=== PATIENT | female | born 1950 | race Caucasian/White ===

== ENCOUNTER → 2018-11-03 | Outpatient (CLI) | payer MEDICARE ==
[~2018-11-03] MED LIST: ALBIPROI INH; ALBU.083IS IH; CALCAVITD PO; CYCL10; DIAZ10; FAMO20 PO; HYDACE5 PO; HYDHCL25; HYDHCL25 PO; MAGCHL64ER; NAPR500 PO; SUCR1 PO; TIOT18 IH; VITAMINS; Zofran Odt4 MG PO
[2018-11-03 12:11] LABS: BASOPHILS ABSOLUTE AUTO 0.02 K/mm3 (0.00-0.23); BASOPHILS PERCENT AUTO 1 % (0-2); EOSINOPHILS ABSOLUTE AUTO 0.15 K/mm3 (0.00-0.68); EOSINOPHILS PERCENT AUTO 4 % (0-6); Hematocrit 47.2 % (33.0-51.0); Hemoglobin 14.9 g/dL (11.5-16.0); IMMATURE GRAN ABSOLUTE AUTO 0.01 K/mm3 (0.00-0.10); IMMATURE GRAN PERCENT AUTO 0 % (0-1); LYMPHOCYTES ABSOLUTE AUTO 1.01 K/mm3 (0.84-5.20); LYMPHOCYTES PERCENT AUTO 25 % (21-46); MONOCYTES ABSOLUTE AUTO 0.28 K/mm3 (0.16-1.47); MONOCYTES PERCENT AUTO 7 % (4-13); Mean Corpuscular HGB 28.6 pg (26.0-34.0); Mean Corpuscular HGB Conc 31.6 g/dL (31.5-36.5); Mean Corpuscular Volume 91 fL (80-100); Mean Platelet Volume 8.9 fL (9.1-12.4); NEUTROPHILS ABSOLUTE AUTO 2.63 K/mm3 (1.96-9.15); NEUTROPHILS PERCENT AUTO 64 % (41-73); Platelet Count 244 K/mm3 (150-400); RDW Standard Deviation 42.9 fL (35.1-46.3); Red Blood Cell Count 5.21 M/mm3 (3.80-5.20)
[2018-11-03 12:29] LABS: Alanine Aminotransfer (ALT/SGP 26 U/L (12-78); Albumin, Blood 3.8 g/dL (3.4-5.0); Albumin/Globulin Ratio 0.8 (0.8-1.8); Alk Phos 76 U/L (40-126); Anion Gap 3 mmol/L (6-16); Aspartate Aminotrans (AST/SGOT 27 U/L (12-37); Bilirubin, Total 0.3 mg/dL (0.1-1.0); Blood Urea Nitrogen 11 mg/dL (8-24); Bun/Creatinine Ratio 13.8 (12.0-20.0); CO2, Blood 35 mmol/L (21-32); Calcium, Blood 9.2 mg/dL (8.5-10.1); Chloride, Blood 104 mmol/L (98-108); Globulin, Blood 4.5 g/dL (2.2-4.0); Glomerular Filtration Rate >60 (60-); Glucose, Blood 95 mg/dL (70-99); Potassium, Blood 4.3 mmol/L (3.5-5.5); Sodium, Blood 142 mmol/L (136-145); Total Protein, Blood 8.3 g/dL (6.4-8.2)
== END | disposition home or self-care (01) ==
LOC: LAB SHORT 12:07 → LAB EV 12:07
PROVIDERS: Physician Assistant
DX: B37.2 Candidiasis of skin and nail (principal)
CPT/HCPCS: 80053; 85025

== ENCOUNTER → 2018-11-23 | Outpatient (CLI) | payer MEDICARE | LOC: LAB SHORT 07:24 → PLD 07:24 | DX: L30.9 Dermatitis, unspecified (principal) | CPT/HCPCS: 88313 ==

== ENCOUNTER 2019-10-17 11:48 | Inpatient (IN) | payer MEDICARE ==
[~2019-10-17] VITALS: Ht 160 cm; Wt 71.1 kg
[~2019-10-17 11:48] MED LIST changes: +ALBU90OI INH; +ALBU90OI6 INH; -DIAZ10; +DIAZ10 PO; +Daily Multiple1 EACH PO; +POTASSIUM99 MG PO; +Prednisone20 MG PO; -VITAMINS; +Ventolin Sy2 MG/5 ML INH; +Ventolin Sy2 MG/5 ML PO
[2019-10-17 14:02] LABS: Source, Urine Catheter
[2019-10-17 14:15] LABS: Blood, Urine 2+ (Neg); Glucose Qualitative, Urine Neg (Neg); Ketones, Urine 1+ (Neg); Leukocyte Esterase, Urine 1+ (Neg); Nitrite, Urine Neg (Neg); Protein, Urine 3+ (Neg); Specific Gravity, Urine 1.025 (1.003-1.022); Urobilinogen, Urine 1+ (Normal)
[2019-10-17 14:44] LABS: U Amphetamine Screen Not Detected; U Barbituate Screen Not Detected; U Benzodiazapine Screen DETECTED; U Buprenorphine Screen Not Detected; U Cannabinoids Screen Not Detected; U Cocaine Screen Not Detected; U Methadone Screen Not Detected; U Methamphetamine Screen Not Detected; U Opiates Screen Not Detected; U Oxycodone Screen Not Detected; U Phencyclidine Screen Not Detected; U Propoxyphene Screen Not Detected
[2019-10-17 15:05] LABS: Bilirubin, Urine 1+ (Neg)
[2019-10-17 15:06] LABS: Appearance, Urine Clear (Clear); Color, Urine Amber (P-Yellow)
[2019-10-17 15:07] LABS: Amorphous Light (0-Heavy); Bacteria Few /hpf; Hyaline Casts 0-2 /lpf (0-2); Squamous Epithelial Cells Few /hpf (Few)
[2019-10-17 16:42] LABS: BASOPHILS ABSOLUTE AUTO 0.04 K/mm3 (0.00-0.23); BASOPHILS PERCENT AUTO 1 % (0-2); EOSINOPHILS PERCENT AUTO 0 % (0-6); Hemoglobin 16.1 g/dL (11.5-16.0); IMMATURE GRAN ABSOLUTE AUTO 0.07 K/mm3 (0.00-0.10); IMMATURE GRAN PERCENT AUTO 1 % (0-1); LYMPHOCYTES ABSOLUTE AUTO 0.69 K/mm3 (0.84-5.20); LYMPHOCYTES PERCENT AUTO 10 % (21-46); MONOCYTES PERCENT AUTO 6 % (4-13); Mean Corpuscular HGB 27.4 pg (26.0-34.0); Mean Corpuscular HGB Conc 28.9 g/dL (31.5-36.5); Mean Corpuscular Volume 95 fL (80-100); Mean Platelet Volume 9.8 fL (9.1-12.4); NEUTROPHILS ABSOLUTE AUTO 5.92 K/mm3 (1.96-9.15); NEUTROPHILS PERCENT AUTO 83 % (41-73); NRBC Auto 1.4 /100 WBC (0.0-0.2); Platelet Count 287 K/mm3 (150-400); RDW Coefficient Variation 16.4 % (11.7-14.2); RDW Standard Deviation 56.3 fL (35.1-46.3); Red Blood Cell Count 5.87 M/mm3 (3.80-5.20); White Blood Cell Count 7.12 K/mm3 (4.00-11.30)
[2019-10-17 16:52] LABS: Hematocrit 55.7 % (33.0-51.0)
[2019-10-17 17:07] LABS: Ethanol (Alcohol), Blood, Med <3 mg/dL; Troponin I 0.137 ng/mL (0.000-0.040)
[2019-10-17 17:29] LABS: Alanine Aminotransfer (ALT/SGP 238 U/L (12-78); Albumin, Blood 2.3 g/dL (3.4-5.0); Albumin/Globulin Ratio 0.8 (0.8-1.8); Alk Phos 71 U/L (50-136); Anion Gap 8 mmol/L (6-16); Aspartate Aminotrans (AST/SGOT 391 U/L (12-37); Bilirubin, Total 1.2 mg/dL (0.1-1.0); Blood Urea Nitrogen 31 mg/dL (8-24); Bun/Creatinine Ratio 34.1 (12.0-20.0); CO2, Blood 31 mmol/L (21-32); Chloride, Blood 105 mmol/L (98-108); Creatinine, Blood 0.91 mg/dL (0.40-1.00); Globulin, Blood 2.9 g/dL (2.2-4.0); Glomerular Filtration Rate >60 (60-); Glucose, Blood 104 mg/dL (70-99); Potassium, Blood 3.7 mmol/L (3.5-5.5); Sodium, Blood 144 mmol/L (136-145); Total Protein, Blood 5.2 g/dL (6.4-8.2)
[2019-10-17 17:37] LABS: Calcium, Blood 8.3 mg/dL (8.5-10.1)
[2019-10-17 18:56] LABS: Magnesium, Blood 1.6 mg/dL (1.6-2.4); Phosphorus, Blood 5.4 mg/dL (2.5-4.9)
[2019-10-18 03:49] LABS: BASOPHILS ABSOLUTE AUTO 0.05 K/mm3 (0.00-0.23); BASOPHILS PERCENT AUTO 1 % (0-2); EOSINOPHILS ABSOLUTE AUTO 0.08 K/mm3 (0.00-0.68); EOSINOPHILS PERCENT AUTO 1 % (0-6); Hematocrit 53.5 % (33.0-51.0); Hemoglobin 15.3 g/dL (11.5-16.0); IMMATURE GRAN ABSOLUTE AUTO 0.02 K/mm3 (0.00-0.10); IMMATURE GRAN PERCENT AUTO 0 % (0-1); LYMPHOCYTES ABSOLUTE AUTO 1.28 K/mm3 (0.84-5.20); LYMPHOCYTES PERCENT AUTO 17 % (21-46); MONOCYTES ABSOLUTE AUTO 0.84 K/mm3 (0.16-1.47); MONOCYTES PERCENT AUTO 11 % (4-13); Mean Corpuscular HGB 27.3 pg (26.0-34.0); Mean Corpuscular HGB Conc 28.6 g/dL (31.5-36.5); Mean Corpuscular Volume 95 fL (80-100); Mean Platelet Volume 9.7 fL (9.1-12.4); NEUTROPHILS ABSOLUTE AUTO 5.08 K/mm3 (1.96-9.15); NEUTROPHILS PERCENT AUTO 69 % (41-73); NRBC ABSOLUTE 0.11 K/mm3 (0.00-0.02); NRBC Auto 1.5 /100 WBC (0.0-0.2); Platelet Count 281 K/mm3 (150-400); RDW Coefficient Variation 16.3 % (11.7-14.2); RDW Standard Deviation 56.6 fL (35.1-46.3); Red Blood Cell Count 5.61 M/mm3 (3.80-5.20); White Blood Cell Count 7.35 K/mm3 (4.00-11.30)
[2019-10-18 04:14] LABS: Albumin, Blood 3.1 g/dL (3.4-5.0); Albumin/Globulin Ratio 0.9 (0.8-1.8); Bilirubin, Total 1.3 mg/dL (0.1-1.0); Bun/Creatinine Ratio 25.4 (12.0-20.0); Calcium, Blood 8.5 mg/dL (8.5-10.1); Creatinine, Blood 1.34 mg/dL (0.40-1.00); Globulin, Blood 3.5 g/dL (2.2-4.0); Potassium, Blood 4.9 mmol/L (3.5-5.5); Total Protein, Blood 6.6 g/dL (6.4-8.2)
--- NOTE | 2019-10-18 06:29 | NUR ---
ADMISSION: ADMISSION INCOMPLETE D/T PATIENT CONFUSION, NO FAMILY/CAREGIVER/FRIENDS AT BEDSIDE
--- NOTE | 2019-10-18 06:41 | NUR ---
a+o, garbled speech, currently resting quietly, with wrist and vest restraints, 4L via nc kept 02% in the 90's while resting but would dstat with activity, bed in low position, call light in reach, will continue to monitor and treat until share bsr with day staff and pt
--- NOTE | 2019-10-18 11:46 | NUR ---
Echocardiogram completed.
--- NOTE | 2019-10-18 19:37 | NUR ---
SHIFT SUMMARY REPORT REC'D FROM ANN MARIE DE LA TORRE. ASSESSMENT NOTED. LAURA AND SOFT WRIST RETRAINTS REMAINED IN PLACE T/O DAY D/T PT REPEATEDLY REMOVING O2. WHEN O2 IS OFF, SATS DROP TO 70 AND REMAIN FOR ABOUT 20 MIN WITH O2 BUMPED FROM 3 TO 6 UNTIL SATS REACH 90'S THEN CAN BE TURNED BACK DOWN. THIS ALSO HAPPENED EACH TIME PT WORKED WITH THERAPY TODAY. Q1H URINE OUTPUT RECORDED AND IS NOT A PROBLEM. CHEMICAL LABORATORY TESTER CAME IN TODAY AND INFORMED THIS RN THAT PT HAS HISTORY OF SCHIZOPHRENIA AND IS A HEAVY SMOKER WITH COPD. SHE HAD A FAMILY MEMBER WITH COPD ON HOME O2 RECENTLY AND DUE TO HER MENTAL HEALTH ISSUES ASS[employer]IATES O2 WITH . SHE ALSO STATED THAT PT SEES A COSMETICS COUNTER MANAGER AND WAS ENCOURAGED TO SEE HER DR SEVERAL DAYS AGO WHEN PT WAS SHORT OF BREATH WHILE SHOPPING WITH CHEMICAL LABORATORY TESTER. PT DECLINED STATING THAT SHE HAD AN APPT COMING UP. C.G. STATES PT DOES NOT TAKE PSYCH MEDS. SHE ASSISTS PT WITH DAY TO DAY ACTIVITIES SUCH LAUNDRY, SHOPPING, APPOINTMENTS, ETC. PT IS NORMALLY INDEP, COHERENT, CLEAR SPEECH. HER CURRENT PRESENTATION IS NOTHING NEAR HER HOME BASELINE. PT HAS REFUSED HOME O2 SET UP THREE TIMES PER C.G. BECAUSE OF HER ASSOC TO . PROBABLY ANOXIC BRAIN INJURY? UNABLE TO LOOK INTO PT RECORDS DUE TO BUSY PT TURNOVER IN UNIT. REPORT GIVEN TO ANN MARIE DE LA TORRE. NO CHANGE WITH PT T/O THE DAY.
--- NOTE | 2019-10-18 21:31 | NUR ---
alert at base line continues to disregard directtions, removing nc and monitors, dispite eduation as to sonia contreras, still demanding to be allowed to go home, restraits in place, frequent checks by staff, assessed for comfort and marko care, 6L via nc, fed jello with medication and prn, refused and ice cream with med in them, speech garbled, report received from day shift agreed to give late medations, call ed hospitalist r/q hour urine checks, agreed to just monitor and ensure that pt continues to have good urine flow, legs are much improved from yesterday only ankles continu to have +3 edema, fingers and toes cynotic/clubbed, denies pain, oral care provided, adjusted in bed, will continue to monitor and treat as appropriate until provide bsr to day nurse
--- NOTE | 2019-10-19 00:48 | NUR ---
RESTING QUIETLY, DRAINED AND RECORDED URINE OUTPUT, STILL LIGHT CLEAR YELLOW, DRY, REPOSITIONED
--- NOTE | 2019-10-19 07:12 | NUR ---
ASSUMED CARE: PT SITTING UPRIGHT IN BED, WRIST RESTRAINTS AND LAURA VEST IN PLACE. PT CONFUSED, PULLING AT RESTRAINTS, ATTEMPTING TO GET O2 OFF. [place] IN PLACE. NIGHT DYED YARN OPERATOR HELPING PT GET REPOSITIONED IN BED.
--- NOTE | 2019-10-19 07:20 | NUR ---
still in restraints, call 4L via nc, when pt removes nc dstats and takes more than just 4L to get her back up quickly, when resting, stays above 92% on just 2L via nc, still pulling on restraints, still askin to be allowed to "pee" dispite multiple people having told her in various ways that she has a cantor cath, cooperative even when removed restraints just very forgetful, bsr shared with day staff and pt
--- NOTE | 2019-10-19 13:56 | NUR ---
Pt. is in bed resting offered prayers for her .
--- NOTE | 2019-10-19 16:40 | NUR ---
PT GOT UP AND WORKED WITH PT/OT WITHOUT OO2 IN PLACE. DID DESAT BUT RECOVERED AFTER SEVERAL MINUTES TO MID 90S. ON RA AT THIS TIME ND WRIST RESTRAINTS OFF DUE TO LINES BEING REMOVED OR COVERED
--- NOTE | 2019-10-19 17:21 | NUR ---
PT TRANSFERRED TO MEDICAL FLOOR VIA WHEEL CHAIR AND O2 IN PLACE DUE TO PT BEING SOB WITH EXERTION. REPORT GIVEN TO JONATHON DE LA TORRE
--- NOTE | 2019-10-19 17:35 | NUR ---
PT ARRIVED TO THE MEDICAL FLOOR FROM THE PCU, ALERT ORIENTED TO SELF ONLY, THE PT ON ARRIVAL TO THE FLOOR HAD HER O2 PULLED OFF AND WAS AT 70% O2, ORDER WAS WRIST RESTRAINTS WAS GIVEN BY DR. MENDOZA, CALL LIGHT WAS PLACED IN REACH, WILL CONTINUE TO MONITOR AND ASSESS FOR CHANGES
--- NOTE | 2019-10-19 21:03 | NUR ---
1919: ASSUMED CARE OF PATIENT WHO IS SITING IN BED, RESTRAINED WITH LAURA AND SOFT WRIST RESTRAINTS. PER REPORT SHE WAS ABLE TO UNDO HER SRIST RESTRAINTS AND EVEN WITH THEM IN PLACE SHE CONTINUES TO BEND HER HEAD DOWN AND REMOVE ERH O2. CAREGIVERS AT BEDSIDE ARE KEEPING HER FROM REMOVING IT. SHE IS AGITATED, CALLING OUT FOR HELP. PER DAY RN SHE WAS SATURATING AT MID 60'S ON ARRIVAL TO THE [facility] [place]. O2 IS CURRENTLY AT 2L. PER CAREGIVERS THEY FEEL THAT SHE NEEDS VALIUM, WHICH SHE TAKES DAILY. PER EMAR SHE HAS A DAILY DOSE BUT TOLD FAMILY I WOULD SEE IF THE DR WOULD GIVE ANYTHING ADDITIONAL FOR ANXIETY. PASSED THIS TO FOREST AND CONSERVATION WORKER WHO CALLED AND RECEIVED ORDERS PER EMAR. 2107: GOT PATIENT OOB TO [facility] [place] VOIDED 250[place]. SHE WAS FIGHTING AND TRYING TO TAKE OFF HER O2 ONCE RESTRAINTS WERE LOOSED. GOT HER BACK TO BED WITH ASSIST X2 BUT PATIENT WAS EXTREMELY SOB AND HAD DIFFICULTY TRANSFERRING BACK TO THE BED. GAVE BEDTIME MEDS AND PRN VALIUM PER EMAR. BED LOW AND LOCKED. PT ON CAMERA. CALL BULL WITHIN REACH.
--- NOTE | 2019-10-19 23:46 | NUR ---
RECHECKED PT VS AND SHE WAS FOUND TO BE HYPOXIC; WITH ELEVATED HR AND BP; INCREASED O2 CALLED RT. A HI-FLOW N/C WAS PLACED. PT VS STABILIZED, NOW SBP 130s, O2 96%. VEWS SCORE IMPROVED. RESTRAINTS WERE SECURED AT A LOWER POINT ON THE BED FRAME. BED LOW AND LOOCKED. WILL CONTINUE TO MONITOR.
[2019-10-20 05:03] LABS: BASOPHILS ABSOLUTE AUTO 0.04 K/mm3 (0.00-0.23); BASOPHILS PERCENT AUTO 1 % (0-2); EOSINOPHILS ABSOLUTE AUTO 0.02 K/mm3 (0.00-0.68); EOSINOPHILS PERCENT AUTO 0 % (0-6); Hematocrit 53.2 % (33.0-51.0); Hemoglobin 15.3 g/dL (11.5-16.0); IMMATURE GRAN ABSOLUTE AUTO 0.02 K/mm3 (0.00-0.10); IMMATURE GRAN PERCENT AUTO 0 % (0-1); LYMPHOCYTES ABSOLUTE AUTO 1.08 K/mm3 (0.84-5.20); LYMPHOCYTES PERCENT AUTO 17 % (21-46); MONOCYTES ABSOLUTE AUTO 0.63 K/mm3 (0.16-1.47); MONOCYTES PERCENT AUTO 10 % (4-13); Mean Corpuscular HGB 27.3 pg (26.0-34.0); Mean Corpuscular HGB Conc 28.8 g/dL (31.5-36.5); Mean Corpuscular Volume 95 fL (80-100); Mean Platelet Volume 9.7 fL (9.1-12.4); NEUTROPHILS ABSOLUTE AUTO 4.68 K/mm3 (1.96-9.15); NEUTROPHILS PERCENT AUTO 72 % (41-73); Platelet Count 263 K/mm3 (150-400); RDW Coefficient Variation 15.5 % (11.7-14.2); RDW Standard Deviation 53.2 fL (35.1-46.3); Red Blood Cell Count 5.61 M/mm3 (3.80-5.20); White Blood Cell Count 6.47 K/mm3 (4.00-11.30)
[2019-10-20 06:18] LABS: Alanine Aminotransfer (ALT/SGP 208 U/L (12-78); Albumin, Blood 3.1 g/dL (3.4-5.0); Albumin/Globulin Ratio 0.8 (0.8-1.8); Alk Phos 72 U/L (50-136); Aspartate Aminotrans (AST/SGOT 136 U/L (12-37); Bilirubin, Total 1.6 mg/dL (0.1-1.0); Blood Urea Nitrogen 18 mg/dL (8-24); Bun/Creatinine Ratio 21.3 (12.0-20.0); Calcium, Blood 8.6 mg/dL (8.5-10.1); Chloride, Blood 89 mmol/L (98-108); Creatinine, Blood 0.84 mg/dL (0.40-1.00); Globulin, Blood 3.7 g/dL (2.2-4.0); Glomerular Filtration Rate >60 (60-); Glucose, Blood 94 mg/dL (70-99); Potassium, Blood 4.1 mmol/L (3.5-5.5); Sodium, Blood 142 mmol/L (136-145); Total Protein, Blood 6.8 g/dL (6.4-8.2)
[2019-10-20 06:23] LABS: Anion Gap Unable to Calculate mmol/L (6-16); CO2, Blood >45 mmol/L (21-32); Magnesium, Blood 1.1 mg/dL (1.6-2.4)
--- NOTE | 2019-10-20 07:41 | NUR ---
PATIENT CONTINUES TO BE ALL OVER THE PLACE WITH HER SATURATION LEVELS. ALSO PT HAS POOR OUTPUT. BUT SHE ALSO HAS POOR INTAKE. SHE IS RESTRAINED IN A LAURA AND SOFT WRIST RESTRAINTS. RECEIVING O2 VIA HI-SONY N/C WHICH SHE KEEPS TRYING TO REMOVE, OFTEN SUCESSFULLY EVEN IN RESTRAINTS. PT HAD ONE UNMEASURED VOID WHICH WAS LARGE. THEN SHE HAD ONE MEASURED VOID OF 250MLS. CRITICAL VALUES WERE CALLED TO DR INGRAM THIS AM. MAG=1.1 AND CO2>45. NO NEW ORDERS RECIEVED.
--- NOTE | 2019-10-20 17:24 | NUR ---
PT CONFUSED THROUGHOUT THIS SHIFT. PT REMAINS ON WRIST RESTRAINTS AND LAURA VEST IN ORDER TO PROTECT HER O2 TUBING. PT ADJUSTS OR REMOVES O2 TUBING ANY TIMES HER HANDS ARE RELEASED. O2 SATS FROM 80'S TO 60'S WHEN O2 REMOVED. PT REMAINS ON 5L O2 THROUGHOUT THIS SHIFT. PT REORIENTED MULTIPLE TIMES THROUGHOUT THIS SHIFT. PT 2 PERSON ASSIST TO BEDSIDE COMODE WITH MULTIPLE ATTEMPTS TO REORIENT AND GUIDE THROUGH THE PROCESS. PT SPEACH MUMBLED/GARBLED AT TIMES WHILE MUMBLED BUT UNDERSTANDABLE AT OTHERS. PT CURRENTLY IN ROOM EATING WITH THE ASSISTANCE OF THE NURSE PRACTITIONER PER DIEM.
--- NOTE | 2019-10-21 01:33 | NUR ---
IV STARTED IN THE LEFT FOREARM, 22G FLUSHED WELL WITH 10NS, WITH GOOD BLOOD RETURN.
--- NOTE | 2019-10-21 04:37 | NUR ---
SHIFT SUMMARY PATIENT REMAINS CONFUSIED AND IN LAURA/SOFT WRIST RESTRAINTS. CIRCULATION AND SENSATION HAS BEEN INTACT AT ALL TIMES. IV IN LEFT AC STARTED LEAKING, NEW IV INSERTED INTO LEFT FOREARM. SHE IS CURRENTLY ON 5 LITERS O2 VIA HIGH FLOW NASAL CANULA. BED IN LOWEST POSITION WITH WHEELS LOCKED AND ALARM ON. CALL LIGHT WITHIN REACH. REPORT GIVEN TO ONCOMING RN.
--- NOTE | 2019-10-21 05:51 | NUR ---
DURING THE RESTRAINT ASSESSMENT I NOTICED THAT THE PATIENTS ELBOWS WERE BECOMING RED. PROTECTIVE MEPILEX DRESSINGS APPLIED.
[2019-10-21 06:05] LABS: Alanine Aminotransfer (ALT/SGP 147 U/L (12-78); Albumin, Blood 2.9 g/dL (3.4-5.0); Albumin/Globulin Ratio 0.8 (0.8-1.8); Alk Phos 66 U/L (50-136); Anion Gap 5 mmol/L (6-16); Aspartate Aminotrans (AST/SGOT 77 U/L (12-37); Blood Urea Nitrogen 18 mg/dL (8-24); Bun/Creatinine Ratio 21.4 (12.0-20.0); CO2, Blood 43 mmol/L (21-32); Calcium, Blood 8.8 mg/dL (8.5-10.1); Chloride, Blood 93 mmol/L (98-108); Creatinine, Blood 0.84 mg/dL (0.40-1.00); Globulin, Blood 3.7 g/dL (2.2-4.0); Glomerular Filtration Rate >60 (60-); Glucose, Blood 76 mg/dL (70-99); Sodium, Blood 141 mmol/L (136-145); Total Protein, Blood 6.6 g/dL (6.4-8.2)
[2019-10-21 06:08] LABS: BASOPHILS ABSOLUTE AUTO 0.03 K/mm3 (0.00-0.23); BASOPHILS PERCENT AUTO 1 % (0-2); EOSINOPHILS ABSOLUTE AUTO 0.15 K/mm3 (0.00-0.68); EOSINOPHILS PERCENT AUTO 3 % (0-6); Hemoglobin 15.8 g/dL (11.5-16.0); IMMATURE GRAN ABSOLUTE AUTO 0.03 K/mm3 (0.00-0.10); IMMATURE GRAN PERCENT AUTO 1 % (0-1); LYMPHOCYTES ABSOLUTE AUTO 1.14 K/mm3 (0.84-5.20); LYMPHOCYTES PERCENT AUTO 24 % (21-46); MONOCYTES PERCENT AUTO 15 % (4-13); Mean Corpuscular HGB 27.4 pg (26.0-34.0); Mean Corpuscular HGB Conc 28.6 g/dL (31.5-36.5); Mean Corpuscular Volume 96 fL (80-100); NEUTROPHILS ABSOLUTE AUTO 2.73 K/mm3 (1.96-9.15); NEUTROPHILS PERCENT AUTO 57 % (41-73); Platelet Count 164 K/mm3 (150-400); RDW Coefficient Variation 15.3 % (11.7-14.2); RDW Standard Deviation 53.8 fL (35.1-46.3); Red Blood Cell Count 5.77 M/mm3 (3.80-5.20); White Blood Cell Count 4.78 K/mm3 (4.00-11.30)
[2019-10-21 06:10] LABS: Hematocrit 55.3 % (33.0-51.0)
--- NOTE | 2019-10-21 17:59 | NUR ---
PT LETHARGIC AND SLEEPING THROUGHOUT THIS SHIFT. PT WAKES TO VERBAL STIMULI THEN QUICKLY RETURNS TO SLEEP. PT CONTINUES TO BE IN RESTRAINTS TO MAINTAIN O2 LINES, WHICH SHE QUICKLY ADJUSTS AND REMOVES NC WHEN HANDS ARE ABLE TO REACH HER FACE. PT REMAINS CONFUSED THROUGHOUT THIS SHIFT WITHOUT MOMENTS OF CLARITY SEEN YESTERDAY. PT UP TO BEDSIDE COMODE 2X DURING THIS SHIFT WITH 2 PERSON ASSIST. PT REMAINS ON 5L O2 TO MAINTAIN SATS IN 90S. PT CURRENTLY SLEEPING IN BED.
--- NOTE | 2019-10-22 04:45 | NUR ---
SHIFT SUMMARY PATIENT WOKE UP AND WAS MUMBLING TO SELF AND TALKING TO STAFF FOR THE FIRST PART OF THE NIGHT AND THEN SLEPT SOUNDLY THE REST OF THE NIGHT. IV PATENT AND FLUSHED. LAURA VEST/SOFT WRIST RESTRAINTS IN PLACE, ASSESSMENTS DONE MINIMUM OF EVERY TWO HOURS. CIRCULATION, SENSATION, AND MOVEMENT ALL AT BASELINE. PATIENT CURRENTLY ON 5 LITERS O2 VIA HIGH FLOW NASAL CANULA. PROTECTIVE MEPILEX STILL ON ELBOWS. BED IN LOWEST POSITION WITH WHEELS LOCKED AND ALARM ON. CALL LIGHT WITHIN REACH. REPORT GIVEN TO ONCOMING RN.
[2019-10-22 05:55] LABS: Anion Gap 4 mmol/L (6-16); Blood Urea Nitrogen 18 mg/dL (8-24); Bun/Creatinine Ratio 23.3 (12.0-20.0); CO2, Blood 39 mmol/L (21-32); Calcium, Blood 9.1 mg/dL (8.5-10.1); Chloride, Blood 97 mmol/L (98-108); Creatinine, Blood 0.77 mg/dL (0.40-1.00); Glomerular Filtration Rate >60 (60-); Glucose, Blood 78 mg/dL (70-99); Potassium, Blood 4.3 mmol/L (3.5-5.5); Sodium, Blood 140 mmol/L (136-145)
--- NOTE | 2019-10-22 08:40 | NUR ---
PT REFUSING MEDS AND ANY FOOD OR WATER AT THIS TIME. SHE IS STILL IN RESTRAINTS AND IS QUIET AT THIS TIME.
--- NOTE | 2019-10-22 12:18 | NUR ---
PT NEEDS TO BE ENCOURAGED TO EAT . SHE TOLD DOCTOR SHE WAS HUNGRY YET WHEN PRESENTED WITH FOOD SHE HAS TO BE ENCOURAGED TO EAT. ALL ITEMS FROM [facility] WERE PRESENTED TO HER AND STAFF REPEATED TO HER THAT SHE NEEDED TO EAT TO GET BETTER. PT STILL REMAINS CONFUSED AND ATTEMPTS TO PULL AT O2 LINES. FLUIDS AND FOOD CONTINUE TO BE PUSHED
--- NOTE | 2019-10-22 16:44 | NUR ---
INITIAL PAL CARE VISIT - PER REQUEST OF RN TODAY. T/C from RN with report of pt pulling O2 off, not being alert/awake enough for good PO intake, continued anxiety, agiation, severe confusion. Visit made after review of EMR. Pt woke to touch but did not want to be touched or talked to. She is in soft restraints, supine, with hob elevated. She falls back to sleep if undisturbed. Some repositioning done to prevent pressure on foot against foot board. Most verbalization is unintelligible. She has had psych consult with recommendations for medications to treat agitation and hallucinations. Pt has long hx of schizophrenia and had [place] [facility] [place] [facility] more than 20 years ago per friend. Most of the information gathered was from friend Lidya by phone this afternoon. [phone] Lidya reports that she has been in contact with pt's son, Jasper [phone] and that he is on his way here from out of state, arriving tomorrow. She also spoke with pt's daughter, Raven - [phone], who is deferring decisions to Jasper and states she cannot participate in care decisions or be present. Lidya reports that pt has been hypoxic for many years with severe COPD but has declined using O2, even though it has been set up in her home at least 7 times in recent years. Care managers note outlines assistance that Lidya and her daughter have provided to Fátima for years, which allowed her to remain in her own apartment, living alone. Fátima recently started having severe hallucinations again and thought when they visited to help her that it was someone trying to break in her apartment. She has seen a WINDOW GLASS CUTTER OFF at [facility] most recently and also a psychologist there but Lidya reports that she frequently dumped her medications down the toilet once filled at pharmacy. She believes pt was in touch with [employer] in the past and had resources to spend down before becoming eligible for needed services. Will leave VM for CM department to let them know son arriving tomorrow to assist with decision making and placement conversations. Pal care will also try to f/u with son for discussing desired goals of care. Lidya reports that many of pt's family members of COPD and that pt connects their deaths with O2 use and has refused O2 for many years despite being severely hypoxic and sob with minimal exertion. Pt also had PMH of CHF with right atria enlargement and normal EF, elevated liver enzymes and most recently weight loss, profound weakness and frequent falls at home in addition to the deterioration of her mental status and ability to communicate clearly. While visiting pt today, she did not appear agitated or exhibit nonverbal indicators of pain. She was able to verbalize "go away", "don't touch me" and did appear anxioud with my presence. She was able to drift back to sleep as I left the room. She is wearing attends and is incontinent. She has not been alert enough to safely feed or eat on her own recently at home and here.
--- NOTE | 2019-10-22 17:44 | NUR ---
PATIENT CONTINUES TO TRY TO REMOVE O2 TUBING BY RUBBING HER FACE ONTO HER SHOULDER. O2 DROPS TO MID 70'S WHEN SHE IS SUCCESSFUL. WILL RETURN WNL ONCE REAPPLIED. STAFF CONTINUES TO EXPLAIN TO PT THE IMPORTANCE OF KEEPING O2 ON. SHE HAS REFUSED ALL OF HER FOOD EACH MEAL HAVING TO BE HIGHLY ENCOURAGED TO TAKE 4 BITES. SHE REFUSES WATER OR ANY FLUIDS.
--- NOTE | 2019-10-23 04:49 | NUR ---
SHIFT SUMMARY PATIENT STILL PLACED IN LAURA VEST/WRIST RESTRAINTS. CIRCULATION, MOVEMENT, AND SENSATION ALL INTACT. PATIENT HAS FIGURED OUT HOW TO SLIP HER HANDS OUT OF THE RESTRAINTS ON OCCASION. SHE HAS CLEARLY ASKED TO HAVE THEM REMOVED AND TO GO HOME OVERNIGHT. SHE SLEPT WELL MOST OF THE NIGHT, WOULD OCCASIONALLY SEEM AGITATED WHEN SHE NEEDED TO USE THE RESTROOM BUT QUICKLY SETTLES DOWN AFTER GETTING BACK IN BED. PATIENT CURRENTLY ON 2.5 LITERS O2 VIA HIGH FLOW NASAL CANULA. IV PATENT AND INFUSING WITH NORMAL SALINE AT 100 ML/HR. BED IN LOWEST POSITION WITH WHEELS LOCKED AND ALARM ON. CALL LIGHT WITHIN REACH. REPORT GIVEN TO ONCOMING RN.
[2019-10-23 04:56] LABS: BASOPHILS ABSOLUTE AUTO 0.03 K/mm3 (0.00-0.23); BASOPHILS PERCENT AUTO 1 % (0-2); EOSINOPHILS ABSOLUTE AUTO 0.13 K/mm3 (0.00-0.68); EOSINOPHILS PERCENT AUTO 4 % (0-6); Hematocrit 52.6 % (33.0-51.0); Hemoglobin 15.2 g/dL (11.5-16.0); IMMATURE GRAN ABSOLUTE AUTO 0.01 K/mm3 (0.00-0.10); IMMATURE GRAN PERCENT AUTO 0 % (0-1); LYMPHOCYTES PERCENT AUTO 25 % (21-46); MONOCYTES PERCENT AUTO 11 % (4-13); Mean Corpuscular HGB 27.3 pg (26.0-34.0); Mean Corpuscular HGB Conc 28.9 g/dL (31.5-36.5); Mean Corpuscular Volume 95 fL (80-100); Mean Platelet Volume 9.9 fL (9.1-12.4); NEUTROPHILS ABSOLUTE AUTO 2.15 K/mm3 (1.96-9.15); NEUTROPHILS PERCENT AUTO 59 % (41-73); Platelet Count 164 K/mm3 (150-400); RDW Coefficient Variation 14.6 % (11.7-14.2); RDW Standard Deviation 50.7 fL (35.1-46.3); Red Blood Cell Count 5.56 M/mm3 (3.80-5.20); White Blood Cell Count 3.62 K/mm3 (4.00-11.30)
[2019-10-23 05:19] LABS: Alanine Aminotransfer (ALT/SGP 84 U/L (12-78); Albumin, Blood 2.7 g/dL (3.4-5.0); Albumin/Globulin Ratio 0.7 (0.8-1.8); Alk Phos 61 U/L (50-136); Anion Gap 3 mmol/L (6-16); Aspartate Aminotrans (AST/SGOT 36 U/L (12-37); Bilirubin, Total 1.2 mg/dL (0.1-1.0); Blood Urea Nitrogen 16 mg/dL (8-24); Bun/Creatinine Ratio 22.6 (12.0-20.0); CO2, Blood 37 mmol/L (21-32); Calcium, Blood 8.8 mg/dL (8.5-10.1); Chloride, Blood 102 mmol/L (98-108); Creatinine, Blood 0.71 mg/dL (0.40-1.00); Globulin, Blood 3.7 g/dL (2.2-4.0); Glomerular Filtration Rate >60 (60-); Glucose, Blood 80 mg/dL (70-99); Potassium, Blood 4.3 mmol/L (3.5-5.5); Sodium, Blood 142 mmol/L (136-145); Total Protein, Blood 6.4 g/dL (6.4-8.2)
[2019-10-23] MEDS ORDERED: Cyclobenzaprine5 MG PO (08:31)
[2019-10-23] MEDS ORDERED: HYDPAM50 PO (08:32)
[2019-10-23] MEDS ORDERED: Anti-Diarrheal2 MG PO (08:33)
[2019-10-23] MEDS ORDERED: MAGNESIUM OXID500 MG PO (08:34)
[2019-10-23] MEDS ORDERED: PREDNISOLONE ACE5 ML LEFTEYE (08:35)
[2019-10-23] MEDS ORDERED: PROAIR RESPICL90 MCG INH (08:35)
--- NOTE | 2019-10-23 19:47 | NUR ---
SHIFT SUMMARY PT AWAKE MOST OF DAY TALKING TO HERSELF IN THE ROOM. HAS REMOVED WRIST RESTAINTS ONCE TODAY. HAS PULLED O2 OFF WHENEVER RESTRAINTS HAVE BEEN REMOVED DESPITE BEING REMINDED O2 IS NEEDED FOR HER RESP STATUS. 1 PERSON ASSIST UP TO BEDSIDE COMMODE. DOES HAVE TROUBLE REDIRECTING AT TIMES. HAS ASKED MULTIPLE TIMES WHERE SHE IS AND WHY. NOT RETAINING WHAT IS TOLD TO HER. HELPER, TRAVIS SWANSON, IN TO SEE PT AND REPORTED PT WAS BECOMING PARANOID WITH HER AND ACCUSING HER OF PUTTING HER IN THIS POSITION. WOULDN'T DRINK MILSHAKE BROUGHT IN FOR HER. HASN'T EATEN MORE THAN A BITE OR TWO OF ALL MEALS PUT TOGETHER TODAY. SPITS IT OUT OR TURNS HER HEAD AWAY FROM SPOON. WAS OFFERED TO FEED HERSELF BUT SHE WOULDN'T. STATES SHE DOESN'T EAT MUSHY STUFF INCLUDDING MASHED POTATOS. DUCT LAYER IN AND ATTEMPTED AN EVALUATION BUT PT SPIT ANY FOOD OFFERED HER. SON APPARENTLY IS FLYING IN FROM [place] AND ONLY STAYING THE NIGHT ACCORDING TO TRAVIS. PALLIATIVE CARE NOTIFIED OF SON POSSIBLY COMING IN THIS EVENING.
--- NOTE | 2019-10-24 05:17 | NUR ---
SUMMARY: PT REMAINS CONFUSED W/GARBLED SPEECH BUT HAS BEEN ABLE TO ANSWER SOME Q'S APPROPRIATELY AND HAVE SENSICAL CONVERSATION AT TIMES. REMINDERS AND REORIENTATION PROVIDED PRN. SHE'S STILL IMPULSIVE, PULLING AT IV AND W/ATTEMPTS TO REMOVE O2 IF TRIALED OUT OF RESTRAINTS. BED ALARM ON FOR FALL RISK AND LAURA VEST W/BILAT WRIST RESTRAINTS INTACT D/T PT DESATTING SIGNIFICANTLY W/O O2. SPO2 RANGES FROM 88-97% ON 2.5L VIA HIGH FLOW O2. 2L FR IS IN PLACE BUT PT IS REFUSING TO EAT OR DRINK ANYTHING. SHE DID TAKE PO MEDS AT HS W/ENCOURAGEMENT THOUGH. HER SON WAS MEANT TO VISIT FROM [place] THIS SHIFT BUT HE NEVER ARRIVED SO PALLIATIVE CARE CX W/HIM COULDN'T OCCUR. PT CLAIMS HER "EX-FRIEND" LAXMI SAID "HE WAS NO LONGER COMING". I DID NOT WITNESS THIS CONVERSATION SO AM UNSURE OF IT'S VALIDITY. SHE'S BEEN CONTINENT AND CALLS INTO HALLS FOR TOILETING ASSIST. NO ACUTE CHANGES, VSS/AFEBRILE. WCTM AND REPORT TO DAY RN.
[2019-10-24 05:54] LABS: Anion Gap 6 mmol/L (6-16); Blood Urea Nitrogen 17 mg/dL (8-24); Bun/Creatinine Ratio 25.2 (12.0-20.0); CO2, Blood 37 mmol/L (21-32); Calcium, Blood 9.8 mg/dL (8.5-10.1); Chloride, Blood 96 mmol/L (98-108); Creatinine, Blood 0.68 mg/dL (0.40-1.00); Glomerular Filtration Rate >60 (60-); Glucose, Blood 94 mg/dL (70-99); Potassium, Blood 4.2 mmol/L (3.5-5.5); Sodium, Blood 139 mmol/L (136-145)
--- NOTE | 2019-10-24 06:23 | NUR ---
BNP NOW 211, IMPROVED FROM 973 ON 10/20/19.
--- NOTE | 2019-10-24 13:03 | NUR ---
Pt. is in bed and talking with family visitors in the pt. is do9ng well and is encouraged.
--- NOTE | 2019-10-24 13:24 | NUR ---
Pt resting in bed upon arrival. She appears comfortable with no S/S of distress at this time. Pt's son Jasper is at bedside and reports plan to leave shortly back to [place] but will be back on Wednesday. Jasper requests conversation outside of Pt's room. Engaged in therapeutic discussion regarding goals of care with Jasper. Discussed comfort care and hospice as an option. Jasper reports having a discussion with bedside BRITT Parish prior to this RN's visit regarding comfort care. Jasper reports he is agreeable with comfort care and hospice. Re-enforced education on comfort care and hospice philosophy with V/U made by Jasper. Jasper reports understanding of Pt decline and inability to care for herself. Jasper completes POLST with Pt's wishes to be DNR and comfort measures only. Listened as Jasper reports not having much contact with his mother (Pt) and has experienced other loss with his father and grandfather in the last year. Offered emotional support. No other concerns reported at this time. Spoke with bedside BRITT Parish and discussed case. Марина reports Pt's daughter and long time friend and caregiver are alos agreeable with comfort care. Palliative Care note from previous visit suggests that Pt's daughter has deferred all decisions to Pt's son. Spoke with Dr Dalton and discussed case. Dr Dalton is agreeable and plans to see Pt later today. Palliative Care will fax copy of POLST once MD signature is obtained.
--- NOTE | 2019-10-24 13:45 | NUR ---
SON, LISE, HERE TO SEE PT THIS MORNING. VISITED FOR MOST OF MORNING. ENCOURAGED PT TO KEEP HER OXYGEN ON AND EAT FOOD WHILE HERE IN THE HOSPITAL. WHILE SON HERE WRIST RESTRAINTS REMOVED AND MONITERED FOR ABILITY TO KEEP O2 ON. SPOKE WITH SON ABOUT WHAT HE FELT THE NEXT STEP SHOULD BE. HE REPORTED PT SHOULD NOT GO BACK HOME DUE TO HER MENTAL DIFFICULTIES. EXPLAINED TO SON IF PT DOESN'T KEEP HER OXYGEN ON OR BE WILLING TO EAT SHE WON'T IMPROVE. SON REPORTED HE SPOKE WITH SISTER AND FRIEND TRAVIS AND HAD AGREED THEY WOULD CHANGE HER TO COMFORT CARE. SPOKE WITH PALLIATIVE CARE AND REGGIE CAME UP AND SPOKE WITH SON. DR. BAXTER IN TO SEE PT AND WROTE ORDERS FOR COMFORT CARE. PT REQUESTING PIZZA AND NO EAT PUREE FOOD ANY LONGER. EXPLAINED RISKS OF CHANGING HER DIET AND PT STATED SHE WANTED REGULAR FOOD. EXPLAINED THERE WAS NO PIZZA BUT I COULD ORDER A HAMBURGE AND SHE AGREED. ATE HAMBURGER AND TRIMMINGS. VOICE SEEMED A LITTLE MORE RASPY AFTERWARD BUT SATS DIDNT' DIP. HAS REMOVED O2 SINCE BUT WILL REPLACE IT UPON REQUEST. MORE CHEERY SINCE RESTRAINTS REMOVED AND ABLE TO EAT WHAT SHE WANTS AND COOPERATIVE WITH KEEPING O2 ON.
--- NOTE | 2019-10-24 18:49 | NUR ---
SHIFT SUMMARY PT HAS RAJAN QUITE WELL WITH KEEPING OXYGEN ON AND REPLACING WHEN IT COMES OFF. TRAVIS, HER FRIEND, CAME IN THIS EVENING AND PT REPORTED AFTER VISITOR LEFT THAT SHE DIDN'T WANT TRAVIS IN HER ROOM ANY LONGER, THAT SHE WAS NOT HER FRIEND ANYMORE. SHE ALSO DOESN'T WANT TRAVIS INVOLVED WITH HER CHILDREN EITHER. BED ALARM ON.
--- NOTE | 2019-10-24 18:50 | NUR ---
Initial spiritual care note: Fátima was quite talkative, but repetative and sometimes hard to understand. she was fixated on someone named Carolyn. She was angry at Carolyn for "telling lies" to her son. She says she is disturbed by Carolyn's presence because "at his time of my life, I deserve quiet. Carolyn talks non-stop." Try as I might, I was not able to steer conversation elsewhere. Fátima appeared to appreciaite being heard and affirmed. She spoke about her son with great pride/love. For tonight anyway, she does not want Carolyn visiting. Informed RN of this request. I will remain available.
--- NOTE | 2019-10-25 00:25 | NUR ---
COMFORT CARE ASSESSMENT ASSUMED CARE OF PT AT 1900. PT IS SLEEPING IN ROOM. OXYGEN OFF. PT ENCOURAGED TO USE OXYGEN FOR COMFORT. CALL LIGHT IN REACH, BED IN LOWEST POSTION, BED ALARM ON, VIDEO MONITORING, WILL CONTINUE TO MONITOR.
--- NOTE | 2019-10-25 00:27 | NUR ---
COMFORT CARE ASSESSMENT PT C/O PAIN ALL OVER, MEDICATED WITH ROXINAL. PT ATTEMPTED TO GET OUT OF BED MULTIPLE TIMES TO THE SHIFT. OXYGEN LEVEL ASSESSED, PT AT 85% NASAL CANNULA ADMINISTERED. PT NOW AT 90%. CALL LIGHT IN REACH, BED IN LOWEST POSITION, BED ALARM ON, VIDEO MONITORING, WILL CONTINUE TO MONITOR.
--- NOTE | 2019-10-25 00:30 | NUR ---
COMFORT CARE ASSESSMENT PT IS CURRENTLING SLEEPING, RESPIRATIONS WNL, PT IS MOUT BREATHING, NASAL CANNULA MOVED TO MOUTH. CALL LIGHT IN REACH, BED IN LOWEST POSTION, BED ALARM ON, WILL CONTINUE TO MONITOR.
--- NOTE | 2019-10-25 01:46 | NUR ---
COMFORT CARE ASSESSMENT PT IS CURRENTLY SLEEPING, OXYGEN STILL IN PLACE. CALL LIGHT IN REACH, BED IN LOWEST POSTION, BED ALARM ON, WILL CONTINUE TO MONITOR.
--- NOTE | 2019-10-25 05:05 | NUR ---
COMFORT CARE ASSESSMENT PT SLEPT MOST OF THE NIGHT. PT HAS NOT PEED AT ALL DURING THE NIGHT. PT IS CURRENTLY SLEEPING. CALL LIGHT IN REACH, BED IN LOWEST POSTION, BED ALARM ON, WILL CONTINUE TO MONITOR.
--- NOTE | 2019-10-25 07:46 | NUR ---
PATIENT IS SLEEPING IN BED. THIS RN AND SN REPOSITIONED PATIENT, CHECKED ATTENDS. PATIENT STATED SHE FELT COLD, GAVE ANOTHER BLANKET. PATIENT TOES SHOW SLOW CAP REFILL. PATIENT IS RESTING COMFORTABLY. BED ALARM IN PLACE, CALL LIGHT IN REACH.
--- NOTE | 2019-10-25 11:40 | NUR ---
PATIENT SITTING UP EATING DONALD.
--- NOTE | 2019-10-25 11:41 | NUR ---
EATING LUNCH WITH WELFARE OFFICER.
--- NOTE | 2019-10-25 13:36 | NUR ---
Pt. in bed pastoral visit taken care of.
--- NOTE | 2019-10-25 14:01 | NUR ---
PATIENT GOT UP TO BSC. 1 PERSON ASSIST WITH GB. MUMBLING ABOUT "NOT GOING TO [place], ITS TOO HOT".
--- NOTE | 2019-10-25 15:33 | NUR ---
PALLIATIVE CARE IN THE ROOM WITH THE PATIENT VISITING.
--- NOTE | 2019-10-25 16:33 | NUR ---
Pt visit this afternoon. Pt sitting on edge of bed upon arrival. Pt denies pain and dyspnea at this time. Pt does appear mildly dypneic as evidenced by shorter sentences in order to take breath and work of breathing. Listened as Pt discusses her prognosis. Initially Pt reports feeling scared but then states she is at peace with dying. Pt discusses her discharge plan. Discussed plan is for placement to a higher level of care. Pt expresses concerns regarding when her son is returning. Reported to Pt based off last conversation with her son Jasper plan is for him to fly back to [place] on Wednesday. No other concerns reported at this time. Spoke with bedside RN Samantha and discussed case. Samantha reports no concerns at this time. Faxed copy of completed POLST to medical records. Palliative Care will remain available.
--- NOTE | 2019-10-25 17:33 | NUR ---
SHIFT SUMMARY PATIENT HAS WORKED WITH OT/PT. THIS RN HAS SAT AND TALKED ABOUT TRIPS TO [place] WITH PATIENT. SHE IS ANXIOUS ABOUT HER "AFFAIRS" AFTER SHE PASSES. THIS RN CONTINUED TO PROVIDE REASSURANCE.
--- NOTE | 2019-10-25 18:07 | NUR ---
Routine spiritual care note: Fátima was pleasantly confused and was focused on getting more comfortable in bed. She was restless and talkative about random things. She appeared to enjoy companionship and prayer. Although, I don't think any part of this visit registered with her. Regardless, I will remain available to pt and family.
--- NOTE | 2019-10-26 05:38 | NUR ---
BARREL PLANER SUMMARY PT A/O X1 TO SELF. MUMBLES INCOMPREHENSIBLE WORDS. PT OCCASIONALLY PULLS OFF NASAL CANNULA AFTER RE-APPLYING. PT SLEPT WELL THOUGHOUT THE NIGHT. WOKE UP A COUPLE OF TIMES BUT WAS ABLE TO GET BACK TO SLEEP EASILY. NO ACUTE CHANGES. WILL CONTINUE TO MONITOR.
--- NOTE | 2019-10-26 08:01 | NUR ---
PATIENT IS AWAKE. SITTING UP IN BED. HAS QUESTIONS ABOUT DISCHARGE.
--- NOTE | 2019-10-26 12:45 | NUR ---
RN FROM [facility] IS ASSESSING THE PATIENT RIGHT NOW.
--- NOTE | 2019-10-26 13:02 | NUR ---
Pt. is doing well and is on her lunch encouraged her and offered prayers .
--- NOTE | 2019-10-26 14:22 | NUR ---
PATIENT CALLS APPROPRFLORENTINO.
--- NOTE | 2019-10-27 03:26 | NUR ---
REGIONAL OPERATIONS DIRECTOR SUMMARY PT A/OX1. SLEPT WELL MAJORITY OF NIGHT. HOWEVER, PT GOT UP MID SHIFT AND WAS VERY AGITATED. SHE STARTED TO SCRAP CRANE OPERATOR HER WALKER AND WANTED TO USE IT TO BREAK THE WINDOW. I SAT THE WALKER BACK DOWN AND SHE PICKED UP A PICTURE FRAME AND BANGED IT AGAINST THE WINDOW TRYING TO GET OUT. I REMOVED PHOTO FRAME FROM HER AND TOLD HER IT WAS NOT SAFE. SHE STATED SHE WANTED TO "GET OUT OF HERE". STAFF CAME IN TO REASSURE PT AND KEEP HER CALM. 1 MG ATIVAN GIVEN IV. STAFF STAYED WITH PT IN ROOM UNTIL SHE WAS TIRED ENOUGH TO GET BACK TO BED.
--- NOTE | 2019-10-27 07:40 | NUR ---
PATIENT IS ASLEEP IN HER BED. WILL CONTINUE TO MONITOR
--- NOTE | 2019-10-27 10:03 | NUR ---
Pt sitting in recliner chair out in the [place]choa next to SHEILA Yanez. Pt appears comfortable with no S/S of distress at this time. Spoke with RN Phillip who is covering for Pt's bedside RN and he reports Pt has been impulsive this AM attempting to get out of bed with out assistance. No other concerns reported. Spoke with SHEILA Yanez and she reports Pt has been refusing to eat today. No other concerns reported at this time. Palliative Care will remain available.
--- NOTE | 2019-10-27 11:49 | NUR ---
PATIENT IS OUT IN THE [place] IN A RECLINER WITH THE STAFF. SHE HAS BEEN NAPPING AND TALKING WITH STAFF.
--- NOTE | 2019-10-27 11:50 | NUR ---
PATIENT ATE A GOOD PORTION OF HER LUNCH. SHE MAKES HER NEEDS KNOWN.
--- NOTE | 2019-10-27 14:50 | NUR ---
PATIENT ATE A GOOD PORTION OF HER LUNCH. SHE IS OUT IN THE HALLWAY IN A RECLINER WITH STAFF.
--- NOTE | 2019-10-27 15:41 | NUR ---
PATIENT IS ALERT. SHE MAKES HER NEEDS KNOWN. SHE IS BACK IN BED RESTING.
--- NOTE | 2019-10-27 17:43 | NUR ---
PATIENT HAS A FRIEND IN THE ROOM. PATIENT IS CALM AND COOPERATIVE.
--- NOTE | 2019-10-27 18:05 | NUR ---
PATIENT IS ALERT. ORIENTED TO SELF AND FAMILY. SHE WAS PLEASANT TODAY. NO COMPLAINTS. SHE SAT IN THE RECLINER IN THE [place] WITH STAFF FOR MOST OF THE DAY. SHE HAS A FRIEND AT THE BEDSIDE NOW. WILL CONTINUE TO MONITOR
--- NOTE | 2019-10-28 05:58 | NUR ---
DIRECTOR GLOBAL INTELLIGENCE SUMMARY overall slept well. woke three times to use commode. had large formed BM at HS. no complaints of s/s pain, dyspnea or discomfort. At 0100, patient pulled out her IV. no complications, but pulled away when I attempted to restart. Drinking honey thick juices (as long as they are cold) very well. Still pulling off oxygen frequently overnight.
--- NOTE | 2019-10-28 08:59 | NUR ---
PATIENT SLEEPING AT THIS TIME.
--- NOTE | 2019-10-28 08:59 | NUR ---
PATIENT AMBULATED TO RESTROOM TO VOID AND BRUSH HER TEETH. ANXIOUS AND IMPULSIVE, ATIVAN GIVEN TO TREAT. PATIENT UP IN CHAIR NOW WITH CHAIR ALARM SET FOR SAFETY.
--- NOTE | 2019-10-28 11:11 | NUR ---
PATIENT WALKED IN HALLS WITH GAIT BELT. SOB WITH EXERTION. FALL PRECAUTIONS IN PLACE. ANXIETY MUCH IMPROVED AFTER ATIVAN.
--- NOTE | 2019-10-28 13:50 | NUR ---
PATIENT ASSISTED TO CHAIR. REPORTS SOME BACK PAIN FROM LYING IN BED THAT IS RELEIVED BY SITTING UP IN CHAIR. NUTRITION OFFERED. DENIES ANY NEEDS AT THIS TIME. CHAIR ALARM ON.
--- NOTE | 2019-10-28 15:13 | NUR ---
PATIENT RESTING IN BED. DENIES ANY NEEDS AT THIS TIME. CALL LIGHT WITHIN REACH.
--- NOTE | 2019-10-28 17:50 | NUR ---
PATIENT GIVEN TYLENOL TO TREAT BACK PAIN WITH STATED RELIEF. ATIVAN GIVEN X2 THIS SHIFT TO TREAT ANXIETY. PATIENT USING CALL LIGHT APPROPRIATELY FOR ASSISTANCE AND TOLERATING DIET. FALL PRECAUTIONS IN PLACE PER UNIT PROTOCOL.
--- NOTE | 2019-10-29 06:03 | NUR ---
TRAIN STARTER SUMMARY Fátima was awake most of the night, no complaints or symptoms of discomfort, just restless. Refused her seroquel at HS, but around 0200 asked if I could help her to sleep. Oncoming RN will be encouraged to stagger AM dose. Patient really enjoys nectar and honey thick juices as well as ensure. appetite for food may not be so good, but if offered cold, the above could make a good contribution to her nutrition.
--- NOTE | 2019-10-29 08:30 | NUR ---
PATIENT SLEEPING DURING BEDSIDE SHIFT REPORT.
--- NOTE | 2019-10-29 08:31 | NUR ---
PATIENT UP AND DOWN IN THE ROOM. VERY ANXIOUS THIS MORNING ABOUT BEING IN THE HOSPITAL AND WANTING TO GO BACK TO HER APARTMENT. PATIENT DID NOT SLEEP MUCH DURING THE NIGHT. ATIVAN GIVEN TO TREAT ANXIETY. PATIENT DENIES ANY PAIN.
--- NOTE | 2019-10-29 09:58 | NUR ---
PATIENT SLEEPING AT THIS TIME. ABLE TO REPOSITION HERSELF IN BED.
--- NOTE | 2019-10-29 11:52 | NUR ---
PATIENT MEDICATED WITH ROXINOL TO TREAT BACK PAIN AND DYSPNEA. ABLE TO REPOSITION SELF IN BED. WILL NOT KEEP O2 ON. SAT AND TALKED WITH PATIENT AND ANXIETY IMPROVED AND SHE WAS ABLE TO REST.
--- NOTE | 2019-10-29 15:17 | NUR ---
Clinical Visit; Pt seen for symptom control. Called to room by RN to assess pt. Pt refusing comfort medications, refuses oxygen. Pt is sitting up in bed. She appears cyanotic. She is restless and complaining of pain. Respirations 40/min, shallow and labored. She is wanting to "go home." She keeps repeating that she wants to go home. Pt complaining that she is cold. Warm blankets retrieved and settled pt in bed. Pt cooperating with some resistance to care, but eventually settled down in bed with warm blankets. She is able to take 10 mg Roxanol for shortness of breath. Hand holding to reduce fears. She reports that she has been dreaming. Unable to verbalize anything else and keeps returning to "I have to go home." After 25 min, pt's breathing still labored. Able to give 10 mg more Roxanol and 2 tablets of Ativan. Pt showing signs of being drowsy. Updated RN. Discussed symtoms. Shanna reports that she will put oxygen on the pt if allowed. She reports that pt responded well to the 2mg Ativan this morning and was able to sleep for a while. Medications for support and comfort. No other concerns. Palliative care to remain available.
--- NOTE | 2019-10-29 16:00 | NUR ---
SON AT BEDSIDE ALONG WITH FRIEND SERENITY. FOSTER PRISON STAFF HERE TO ASSESS PATIENT.
--- NOTE | 2019-10-29 17:26 | NUR ---
PATIENT GIVEN ROXINOL FOR PAIN AND AIR HUNGER. PALLIATIVE CARE, BRITT BOWSERN AT BEDSIDE AND MEDICATIONS WERE GIVEN BY HER. 2ND DOSE OF ROXINOL ALSO GIVEN AND 2MG ATIVAN PO.
--- NOTE | 2019-10-29 17:28 | NUR ---
PATIENT SLEEPING AT THIS SHIFT. NO S/S OF DISTRESS OR PAIN.
--- NOTE | 2019-10-29 18:14 | NUR ---
PATIENT DID NOT EAT DINNER THIS SHIFT DUE TO NOT BEING AWAKE ENOUGH AT THIS TIME.
--- NOTE | 2019-10-30 00:57 | NUR ---
HS medication held due to extreme somnolence. patient resting comfortably, [address] place. shifted patient in bed to reposition, Cassy care performed at that time. Patient slept through. will continue comfort monitoring
--- NOTE | 2019-10-30 04:08 | NUR ---
GENERAL II FARMWORKER SUMMARY patient too somnolent to take HS Seroquel. Slept in spite of turning, and safety checks. [address]. Patient did then wake at 0200 and start moaning and increased work of breathing when 02 was removed. Oxygen replaced and ativan and seroquel given and this RN sat at bedside with patient until she fell back to sleep. comfortable rest of night
--- NOTE | 2019-10-30 06:08 | NUR ---
PATIENT AWAKE AND VERY ANXIOUS. PULLING OFF O2 WITHIN SECONDS OF IT BEING REPLACED. NO IV ACCESS TO GIVE IV MORPHINE OR ATIVAN, REFUSING PO. RT CALLED TO ADMINISTER 10MG MORPHINE VIA NEBUOLIZER. WILL CONT. CLOSE MONITORING
--- NOTE | 2019-10-30 07:00 | NUR ---
ASSUMED CARE OF PT- BEDSIDE REPORT COMPLETED PT SLEEPING COMFORTABLY O2 IN PLACE. PER REPORT SHE REMOVES IT FREQUENTLY. PT RECIEVED MORPHINE BREATHING Tx AN HOUR AGO.
--- NOTE | 2019-10-30 08:09 | NUR ---
PT BECAME AGGITATED AND REMOVED HER O2 REPLACING THE O2 ONLY SERVED TO CAUSE MORE AGGITATION. NIGHT RN MEDICATED WITH 10MG ROXANOL. PT REPOSITIONED TO RIGHT SIDE LYING WITH PILLOWS FOR COMFORT. O2 OFF FOR PT COMFORT.
--- NOTE | 2019-10-30 10:45 | NUR ---
PT SITTING STRAIGHT UP IN BED. WILL NOT KEEP HER O2 IN PLACE. PT SEEMS TO BE HAVING SOB BUT HAS A FEAR OF THE OXYGEN. SPOKE TO PALLIATIVE CARE RN WILL GIVE THE PT SL ROXANOL. ROXANOL WAS INEFFECTIVE THIS MORNING AT 10MG DOSE. DOSE WILL BE INCREASED TO 20MG.
--- NOTE | 2019-10-30 11:00 | NUR ---
PAL CARE COMFORT CARE NOTE: CASE CONFERENCED WITH RN EARLIER RE: CURRENT S/S. COMFORT CARE VISIT MADE. PT IS WIDE AWAKE, SITTING UP IN BED, ROCKING AND MUMBLING. SHE APPEARS VERY ANXIOUS BUT NOT SEVERELY AGITATED AT THIS TIME. SHE IS UNABLE TO ANSWER QUESTIONS FOR S/S ASSESSMENT OR SELF REPORT S/S. SHE IS NOT WEARING O2 DUE TO REPEATEDLY REMOVING IT. SHE HAS A FEAR OF O2 FROM PREV EXPERIENCE OF FAMILY MEMBERS BEING O2 DEPENDENT AND DYING OF RESPIRATORY FAILURE. RECOMMENDED ALLOWING PT TO DECIDE IF SHE WANTED TO WEAR O2 OR NOT. SPOKE TO RN AT LENGTH REGARDING PREV PALLIATIVE CARE RNS RECOMMENDATION BASED ON WHAT WORKED YESTERDAY FOR AIR HUNGER AND ANXIETY. PT HAD HAD 10 MG ROXANOL WITH LITTLE RELIEF NOTED. RECOMMENDED THAT 20 MG ROXANOL BE GIVEN AND ATIVAN ALSO PER eMAR, WHICH RN DID. PT WAS SEEN QUIETLY RESTING, RECLINED IN BED WITH HOB UP WITHIN 2O MINUTES AND SLEEPING COMFORTABLY WITHIN 40 MINUTES PER RN REPORT. SON WHO HAD BEEN VISITING HAD TO RETURN HOME. CM WORKING ON PLACEMENT WITH SON AND HOSPICE CARE TO BE ARRANGED AT NEW LIVING SITUATION.
--- NOTE | 2019-10-30 12:06 | NUR ---
PT CURRENTLY SLEEPING APPEARS COMFORTABLE NO S&S OF DISTRESS.
--- NOTE | 2019-10-30 12:50 | NUR ---
PT IN BED MUMBLING AND TALKING TO PEOPLE. NOONE IN THE ROOM AT THIS TIME. HELD HER HAND AND SPOKE SOFTLY TO HER. SHE SEEMED TO CALM A LITTLE. PT IS BREATHING FAST AND SHALLOW. WILL OFFER ROXINOL FOR AIR HUNGER.
--- NOTE | 2019-10-30 13:51 | NUR ---
CALLED PAIILATIVE CARE. PT RESPIRATIONS ARE SHALLOW AND FAST. MEDICATED WITH ROXANOL FOR AIR HUNGER. PT APPEARS MORE RELAXED HOWEVER SHE IS STILL FIDGETTY AND MUMBLING INCOHERENTLY. CALLED PALLIATIVE CARE NURSE FOR AN ADDITIONAL POINT OF VIEW. UNCERTAIN IF THE PT IS AGGITATED AND NEEDS MORE ATIVAN OR IF SHE IS JUST MUMBLING IN HER SLEEP.
--- NOTE | 2019-10-30 14:13 | NUR ---
CALLED TO ROOM PER RN FOR ADDITIONAL ASSESSMENT. PT LYING IN BED, EYES CLOSED, MUMBLING AT TIMES. 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 PT DOES NOT APPEAR DISTRESSED DESPITE RR OF 36/MIN. PT WAS JUST GIVEN ROXANOL PER eMAR APPROX 15 MIN EARLIER THAN MY ARRIVAL. DISCUSSED COMFORT MEASURES WE CAN PROVIDE WITH RN. CALLED FRIENDSERENITY WITH REPORT OF CHANGE IN STATUS AND CALLED DR WITH SAME REPORT. ATTEMPTED TO CALL CM AND LEFT MESSAGE WITH CM COORDINATOR. PLAN TO ADMINISTER ROXANOL FOR INCREASED RESP EFFORT/RATE PER CURRENT ORDERS. REPOSITION FOR COMFORT/AIRWAY CLEARANCE NEEDED. PT HAS REPEATEDLY DECLINED OR REMOVED O2 IF ATTEMPTED TO PLACE ON HER FOR COMFORT. PT ABLE TO OPEN EYES WHEN ROUSED WITH VOICE OR TOUCH. SHE SEEMS MORE COMFORTALBLE WITHOUT STAFF COMPANY. FRIEND SERENITY IS ON HER WAY TO BE WITH HER. NURSE AWARE OF ALL OF ABOVE. PT'S SON WAS NOT UPDATED AT THIS TIME BECAUSE HE IS TRAVELING BY AIR BACK TO HIS HOME. HE WAS PRESENT THIS AM AND AWARE THAT HIS MOM DID NOT WANT TO WEAR O2. CURRENTLY PT'S BIOX IS READING 45% WITH FINGER PROBE. PLAN FOR CONT. SUPPORT AND S/S MANAGEMENT FOR PT WHO APPEARS TO BE ACTIVELY DYING AT THIS TIME DUE TO HYPOXIA.
--- NOTE | 2019-10-30 14:36 | NUR ---
PT RESP STILL SHALLOW AND FAST. NOTIFIED OF TRANSITION. PALLIATIVA CARE HAS COME TO SEE THE PT AGAIN. PT STILL REFUSES ANY OXYGEN OFFERING IT CAUSES ANXIETY. PT SON CAME TO SEE HER THIS MORNING AND STATED HE HAS A PLANE TO [place] TODAY BUT WILL BE BACK IN [place]OWN WEDNESDAY. PT WAS ALERT AND REFUSING OXYGEN AT THE TIME HE WAS HERE WELL. PT HAS A VERY CLOSE FRIEND SERENITY; PALLIATIVE CARE CALLED HER TO NOTIFY OF THE CHANGE IN PT STATUS. PT MEDICATED WITH ANOTHER 20MG SL ROXANOL.
--- NOTE | 2019-10-30 15:39 | NUR ---
PT APPEARS TO BE RESTING COMFORTABLY AT THIS TIME RESP STILL SHALLOW AND FAST BUT 24 RESP PER MINUTE RATHER THAN 40, SO MORE RELAXED.
--- NOTE | 2019-10-30 16:56 | NUR ---
PT APPEARS TO BE RESTING COMFORTABLY AT THIS TIME. RESPIRATIONS ARE UNEVEN BUT APPEAR TO BE UNLABORED AT THIS TIME. THEY ARE SHALLOW AND UNEVEN.
--- NOTE | 2019-10-30 17:45 | NUR ---
PT CLOSE FAMILY FRIEND ARRIVED. AT THE BEDSIDE, PT RESPIRATIONS LABORED, FAST AND SHALLOW. A LITTLE MORE THAN PREVIOUS COMFORT CARE ROUNDING. MEDICATED WITH 10MG ROXANOL, PT HAD A FEW EPPISODES OF AGONAL BREATHING MEDICATED PER REQUEST OF PT FAMILY (CLOSE FAMILY FRIEND) WITH 2MG PO ATIVAL. PLACED A FAN ON PT BEDSIDE TABLE. PT REPOSITIONED ON RIGHT SIDE BY FAMILY. PT APPEARS TO BE FAR MORE COMFORTABLE AFTER ALL OF THESE INTERVENTIONS. WILL CTM
--- NOTE | 2019-10-30 19:00 | NUR ---
Routine spiritual care note: Asked by RN to provide rehab/pre vocational counselor and prayer for pt and visiting friend, Carolyn. Fátima is non-responsive. Skin pallor change, breaths even. Carolyn told me of their 23 year friendship. I also listened to story of pt's estrangement from adult children. Provided gentle bereavement rehab/pre vocational counselor to good effect. Affirmed obvious love. Prayer for a peaceful transition well recieved. Lidya was tearful throughout conversation, but appropriate. Encouraged self-care. I will remain available.
--- NOTE | 2019-10-30 19:34 | NUR ---
SHIFT SUMMARY- PT REMAINS LOOKING RELAXED RESP RATE A LITTLE LESS SHALLOW AT 24 RESP PER MINUTE. FAMILY FRIEND WENT HOME AND LEFT A NUIMBER FOR STAFF TO CALL ANYTIME IF PT NEEDS OR IF SHE PASSES. PT STILL ON HER RIGHT SIDE AT THE TIME OF SHIFT CHANGE, BED ALARM ON FOR SAFETY.
--- NOTE | 2019-10-30 19:36 | NUR ---
COMFORT CARE PT RESTING W/EYES CLOSED, APPEARS COMFORTABLE. RR 26, TOOK SUPPLEMENTAL O2 OFF, DAY SHIFT NURSE INFORMED ME FAMILY STATED TO LEAVE OFF IF PT WANTS OFF. CALL LIGHT IN REACH. WCTM.
--- NOTE | 2019-10-30 21:37 | NUR ---
COMFORT CARE FAMILY FRIEND TRAVIS @BEDSIDE, GAVE PT BEDBATH. PT HAD MODERATE AMOUNT CLEAR SECREATIONS COMING FROM MOUTH APPLIED SCOLPALIMINE PATCH. GRUNTING W/BREATHING, GAVE ATIVAN & ROXANOL TO ASSIST W/DYSPNEA & COMFORT. REPOSITIONED PT ON LEFT SIDE. CALL LIGHT IN REACH. WCTM.
--- NOTE | 2019-10-31 00:33 | NUR ---
UPDATE ON PT WENT IN TO ASSESS PT COMFORT @2339 & NOTICED NO BREATHING, LISTENED TO AP-NO HB & NO PULSES FELT. NOTIFIED CHARGE NURSE ANKIT PAREDES THAT PT HAD PASSED @2344. CALLED FAMILY FRIEND TRAVIS @2349 & NOTIFIED OF PT PASSING. SHE STATED SHE WOULD NOT COME IN & WOULD IMPORT SPECIALIST BELONGINGS @ HOME.
== END 2019-10-30 23:48 | DRG 291 ==
LOC: ER 11:48 → PCU 18:42 → MEDS 10-19 17:14
PROVIDERS: Emergency Medicine; Nurse Practitioner Acute Care; ADMIT Internal Medicine
DX: I50.31 Acute diastolic (congestive) heart failure (principal); J96.01 Acute respiratory failure with hypoxia; G93.1 Anoxic brain damage, not elsewhere classified; Z51.5 Encounter for palliative care; J44.9 Chronic obstructive pulmonary disease, unspecified; F20.9 Schizophrenia, unspecified; K76.1 Chronic passive congestion of liver; W19.XXXA Unspecified fall, initial encounter; Z91.81 History of falling; K21.9 Gastro-esophageal reflux disease without esophagitis; K64.8 Other hemorrhoids; Z66 Do not resuscitate; F03.90 Unspecified dementia, unspecified severity, without behavioral disturbance, psychotic disturbance, mood disturbance, and anxiety
CPT/HCPCS: 36415; 51702; 70450; 71046; 80048; 80053; 81001; 82140; 82607; 82746; 83735; 83880; 84100; 84443; 84484; 85025; 87086; 92526; 92610; 93005; 93010; 93306; 94640; 94760; 94762; 96361; 96372-59; 96374; 97110; 97116; 97162; 97166; 97530; 97535; 99285-25; A9270; A9270-GY; G0480; J1120; J1630; J1650; J1940; J2060; J2270; J3475; J3480; J7030; J7040; J7050